=== PATIENT | female | born 1995 | race Caucasian/White ===

== ENCOUNTER → 2023-07-05 09:58 | Outpatient (REF) | payer OTHER, SELFPAY | LOC: PNTC 09:58 | PROVIDERS: ATTENDING PHYSICIAN Obstetrics & Gynecology | DX: O34.219 Maternal care for unspecified type scar from previous cesarean delivery (principal); O24.414 Gestational diabetes mellitus in pregnancy, insulin controlled | CPT/HCPCS: 76811; 76817; 93976 ==

== ENCOUNTER → 2023-08-03 10:33 | Outpatient (REF) | payer OTHER, SELFPAY | LOC: PNTC 10:33 | PROVIDERS: ATTENDING PHYSICIAN Obstetrics & Gynecology | DX: O44.42 Low lying placenta NOS or without hemorrhage, second trimester (principal); O24.011 Pre-existing type 1 diabetes mellitus, in pregnancy, first trimester | CPT/HCPCS: 76816; 76817; 93976 ==

== ENCOUNTER → 2023-09-04 17:00 | Outpatient (REF) | payer OTHER, SELFPAY | LOC: PNTC 17:00 | PROVIDERS: ATTENDING PHYSICIAN Obstetrics & Gynecology | DX: E10.9 Type 1 diabetes mellitus without complications (principal); O34.219 Maternal care for unspecified type scar from previous cesarean delivery | CPT/HCPCS: 76816 ==

== ENCOUNTER → 2023-09-25 16:58 | Outpatient (REF) | payer OTHER, SELFPAY | LOC: PNTC 16:58 | PROVIDERS: ATTENDING PHYSICIAN Obstetrics & Gynecology | DX: E10.9 Type 1 diabetes mellitus without complications (principal) | CPT/HCPCS: 59025 ==

== ENCOUNTER → 2023-09-28 13:31 | Outpatient (REF) | payer OTHER, SELFPAY | LOC: PNTC 13:31 | PROVIDERS: ATTENDING PHYSICIAN Obstetrics & Gynecology | DX: E10.9 Type 1 diabetes mellitus without complications (principal) | CPT/HCPCS: 59025; 76815 ==

== ENCOUNTER → 2023-10-02 09:29 | Outpatient (REF) | payer OTHER, SELFPAY | LOC: PNTC 09:29 | PROVIDERS: ATTENDING PHYSICIAN Obstetrics & Gynecology | DX: E10.9 Type 1 diabetes mellitus without complications (principal) | CPT/HCPCS: 59025 ==

== ENCOUNTER → 2023-10-05 09:00 | Outpatient (REF) | payer OTHER, SELFPAY | LOC: PNTC 09:00 | PROVIDERS: ATTENDING PHYSICIAN Obstetrics & Gynecology | DX: E10.9 Type 1 diabetes mellitus without complications (principal) | CPT/HCPCS: 59025; 76816 ==

== ENCOUNTER → 2023-10-09 08:00 | Outpatient (REF) | payer OTHER, SELFPAY | LOC: PNTC 08:00 | PROVIDERS: ATTENDING PHYSICIAN Obstetrics & Gynecology | DX: E10.9 Type 1 diabetes mellitus without complications (principal) | CPT/HCPCS: 59025 ==

== ENCOUNTER → 2023-10-12 10:45 | Outpatient (REF) | payer OTHER, SELFPAY | LOC: PNTC 10:45 | PROVIDERS: ATTENDING PHYSICIAN Obstetrics & Gynecology | DX: E10.9 Type 1 diabetes mellitus without complications (principal) | CPT/HCPCS: 59025; 76815 ==

== ENCOUNTER 2023-10-14 14:13 | Inpatient (IN) | payer OTHER, SELFPAY ==
[2023-10-14 14:24] VITALS: BP 115/79; BMI 26.2
[2023-10-14] MEDS: PT'S OWN INSULIN PUMP - NovoLOG 2.5 UNIT SC (15:20)
[2023-10-14 15:21] LABS: Glucose - Point of Care 187 mg/dl (70-99)
[2023-10-14 15:27] LABS: % Basophils 0.5 % (0-2); % Eosinophils 0.3 % (0-6); % Immature Granulocytes 0.7 % (0-0.5); % Lymphocytes 22.1 % (20.5-51.1); % Monocytes 5.3 % (1.7-9.3); % Neutrophils 71.1 % (42.2-75.2); Absolute Basophils 0.1 10^3/uL (0-0.2); Absolute Immature Granulocytes 0.1 10^3/uL (0-0.05); Absolute Lymphocytes 2.4 10^3/uL (1.2-3.4); Absolute Monocytes 0.6 10^3/uL (0.1-0.6); Absolute Neutrophils 7.9 10^3/uL (1.4-6.5); Hematocrit 34.8 % (37.0-47.0); Hemoglobin 12.4 g/dL (12.0-16.0); Mean Corp Hgb Conc. 35.6 g/dL (33.0-37.0); Mean Corpuscular Hgb 29.1 pg (27.0-31.0); Mean Corpuscular Volume 81.7 fL (81.0-99.0); Mean Platelet Volume 11.4 fL (7.4-10.4); Nucleated Red Blood Cells % 0 %; Platelet Count 195 10^3/uL (130-400); Red Blood Cell Count 4.26 10^6/uL (4.20-5.40)
[2023-10-14] MEDS: NSS 1000 IV ×2 (15:30→23:00)
[2023-10-14] MEDS: PENICILLIN 110 UNITS IV (15:43)
[2023-10-14] MEDS: PITOCIN 30 UNITS/NSS 500 ML IV (17:44)
[2023-10-14 19:10] LABS: Glucose - Point of Care 136 mg/dl (70-99)
--- NOTE | 2023-10-14 19:27 | CON.NEO ---
Consultation
-
Date/Time Consultation Requested: 10/14/23 @ 1504
Date/Time Consultation Performed: 10/14/23 @6589
Requesting Provider: Dr Denisha Rivers
Performing Provider: Dr Oxnaa Watts
Reason for Consultation: 27 yo , with type 1 diabetes who presented at 34 6/7 with PPROM
Consultation - Neonatology
Maternal Labs
Blood Type: B Positive
Antibody Screen: Negative
RPR: Nonreactive
Rubella: Immune
Hep B S Ag: Negative
Hep C: Negative
HIV: Nonreactive
Group B Strep: Unknown
Chlamydia/GC: Negative
Consult
Points discussed at consult:
- Management at delivery including the possibility of CPAP/intubation/surfactant discussed
- Respiratory: RDS possibility with possibility of worsening for 24-48 hrs, management including CPAP/surfactant/ventilator support may be required
- Nutrition: Hypoglycemia, need for IV fluids, gradual feed advance, Gavage feeding, importance of colostrum feeding, initiation of expression of colostrum within 3-4 hours, availability of donor milk, safety fo donor milk etc. were discussed.
- Procedures: Intubation, CPAP, IV placement, blood tests, umbilical arterial or venous lines, gavage feedings were discussed
- CVS: possibility of PDA not discussed in detail at this time
- CREATIVE SERVICES COORDINATOR: Rare possibility of IVH and need for head US, grading of IVH and terminal make up operator effects of Grade III/IV although extremely rare at >32 weeks were discussed
- Jaundice possibility and need for phototherapy discussed
- Family Centered Care: Discussed FCC with emphasis on parental participation during sign off and during management rounds and is encouraged. Availability of justin eyes camera also discussed
-Mom and Dad were given the opportunity to ask questions throughout and open invitation to call if any questions come as they absorb all the information given so far.
Face to Face Time
Total [id number] Time (in Minutes): 35 mins
Attending Clinical Applications Manager: Ashley Quintana MD
Clinical Applications Manager
[2023-10-14] MEDS: PT'S OWN INSULIN PUMP - NovoLOG 1.19999999999999996 UNIT SC (19:28)
[2023-10-14] MEDS: PENICILLIN 55 UNITS IV ×2 (20:00→23:57)
[2023-10-14 23:06] LABS: Glucose - Point of Care 91 mg/dl (70-99)
[2023-10-14] MEDS: SUBLIMAZE 100 MCG EPIDURAL (23:30)
[2023-10-14] MEDS: FENTANYL/BUPIVACAINE 100 EPIDURAL (23:30)
[2023-10-15 00:33] LABS: Glucose - Point of Care 114 mg/dl (70-99)
[2023-10-15] MEDS: PT'S OWN INSULIN PUMP - NovoLOG 0.440000000000000002 UNIT SC (01:06)
[2023-10-15] MEDS: PT'S OWN INSULIN PUMP - NovoLOG 0.560000000000000053 UNIT SC (01:18)
[2023-10-15 02:14] LABS: Glucose - Point of Care 141 mg/dl (70-99)
[2023-10-15] MEDS: PITOCIN 30 UNITS/NSS 500 ML IV (03:05)
[2023-10-15] MEDS: PENICILLIN IV (03:53)
[2023-10-15] MEDS: METHERGINE INJECTION 0.200000000000000011 MG IM (04:03)
[2023-10-15 07:40] LABS: Glucose - Point of Care 174 mg/dl (70-99)
[2023-10-15] MEDS: PT'S OWN INSULIN PUMP - NovoLOG 6 UNIT SC (07:43)
[2023-10-15] MEDS: MOTRIN 600 MG PO (07:44)
[2023-10-15 13:47] LABS: Glucose - Point of Care 75 mg/dl (70-99)
[2023-10-15] MEDS: PT'S OWN INSULIN PUMP - NovoLOG 6.59999999999999964 UNIT SC (13:48)
[2023-10-15 17:49] LABS: Glucose - Point of Care 186 mg/dl (70-99)
[2023-10-15] MEDS: PT'S OWN INSULIN PUMP - NovoLOG 9.30000000000000071 UNIT SC (17:50)
[2023-10-15 21:36] LABS: Glucose - Point of Care 56 mg/dl (70-99)
[2023-10-15 21:54] LABS: Glucose - Point of Care 72 mg/dl (70-99)
[2023-10-15] MEDS: PT'S OWN INSULIN PUMP - NovoLOG SC (21:56)
[2023-10-16 04:24] LABS: Hematocrit 30.8 % (37.0-47.0); Hemoglobin 11.1 g/dL (12.0-16.0)
[2023-10-16] MEDS: PT'S OWN INSULIN PUMP - NovoLOG 8 UNIT SC (07:30)
[2023-10-16 08:13] LABS: Glucose - Point of Care 111 mg/dl (70-99)
[2023-10-16] MEDS: PT'S OWN INSULIN PUMP - NovoLOG 9 UNIT SC (11:30)
[2023-10-16 12:35] LABS: Glucose - Point of Care 80 mg/dl (70-99)
[2023-10-16] MEDS: PT'S OWN INSULIN PUMP - NovoLOG 6 UNIT SC (16:30)
[2023-10-17 15:43] LABS: Syphilis/T. pallidum Ab Reflex Negative (Negative)
== END 2023-10-16 18:52 | disposition home or self-care (01) | DRG 805 ==
LOC: LDRP 14:13
PROVIDERS: ADMITTING PHYSICIAN Obstetrics & Gynecology
PROC: 0HQ9XZZ Repair Perineum Skin, External Approach (ICD-10-PCS; 2023-10-15)
PROC: 10E0XZZ Delivery of Products of Conception, External Approach (ICD-10-PCS; 2023-10-15)
DX: O42.013 Preterm premature rupture of membranes, onset of labor within 24 hours of rupture, third trimester (principal); O24.02 Pre-existing type 1 diabetes mellitus, in childbirth; Z37.0 Single live birth; Z3A.34 34 weeks gestation of pregnancy; O34.211 Maternal care for low transverse scar from previous cesarean delivery; N85.8 Other specified noninflammatory disorders of uterus; O69.81X0 Labor and delivery complicated by cord around neck, without compression, not applicable or unspecified; O70.0 First degree perineal laceration during delivery; E10.8 Type 1 diabetes mellitus with unspecified complications
CPT/HCPCS: 88307; 82962; 85014; 85018; 85025; 86780; 86850; 86900; 86901; 87070

== ENCOUNTER 2024-11-26 11:39 | Emergency (ER) | payer OTHER, SELFPAY ==
[2024-11-26 11:42] VITALS: BP 117/73
[2024-11-26 12:22] LABS: Urine Character Clear (Clear)
[2024-11-26 12:22] LABS: Hematocrit 39.0 % (37.0-47.0); Hemoglobin 13.0 g/dL (12.0-16.0); Mean Corp Hgb Conc. 33.3 g/dL (33.0-37.0); Mean Corpuscular Volume 86.1 fL (81.0-99.0); Nucleated Red Blood Cells % 0 %; Platelet Count 289 10^3/uL (130-400); Red Cell Dist. Width 12.5 % (11.5-14.5)
[2024-11-26 12:30] LABS: HCG, Serum Qualitative Screen Negative
[2024-11-26 12:36] LABS: ALT (SGPT) 18 U/L (0-35); AST (SGOT) 22 U/L (14-36); Albumin 4.8 g/dl (3.5-5.0); Alkaline Phosphatase 67 U/L (38-126); Blood Urea Nitrogen 13 mg/dl (7-17); Calcium 9.4 mg/dl (8.4-10.2); Carbon Dioxide 26 mmol/L (22-30); Chloride 105 mmol/L (98-107); Glucose 229 mg/dl (70-99); Potassium 4.6 mmol/L (3.5-5.1); Sodium 138 mmol/L (135-145); Total Protein 7.4 g/dl (6.3-8.2); eGFR > 60.00
[2024-11-26 13:36] VITALS: BMI 24.2
[2024-11-26 13:47] VITALS: BP 111/64
[2024-11-26 14:39] VITALS: BP 125/71
--- NOTE | 2024-11-26 15:10 | ED.GENMED ---
History of Present Illness
General
Chief Complaint: Blood Sugar Problem
Time Seen by Provider: 11/26/24 14:35
History of Present Illness
History of Present Illness:
29-year-old female with history of type 1 diabetes with insulin pump presenting to the emergency department for generally feeling unwell. Patient reports prior to arrival she had an episode when she was in the car, felt unusual. She notes that she
has felt this way in the past when her sugar was low. Her Dexcom scan showed that her sugars were normal. She went to convenient store, got a protein bar and still felt unwell. She started to get anxious about it, which prompted her to come to
the hospital. Notes that her sugars yesterday evening were a little bit more elevated than typical. Denies any fever. Denies any chest pain, difficulty breathing, abdominal pain, urinary symptoms. Denies any vomiting. Denies any known sick
contacts. She did recently start taking creatine, which she had this morning. Reports that she is currently feeling better, denies acute medical complaints
Past History
Past History
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
ED Past Surgical History: None
Social History
Tobacco: Non-smoker
Alcohol: None
Drug: None
Personal:
Living: with family
Employment: Employed
Family History
Family History: Negative Hypertension or CAD
Phy Exam
Physical Exam
Physical Exam:
General: Well-appearing, no clinical signs of dehydration, nontoxic and in no acute distress
HEENT: protecting airway
Neck: appears supple
CV: Normal heart rate, regular rhythm, no evidence of cyanosis
Resp: No accessory muscle use, no increased work of breathing, lungs clear to auscultation bilaterally
Abd: Soft and non-distended, no tenderness to palpation
Extremities: No deformities, no swelling, no erythema, pulses and sensation intact
Neuro: alert, no focal neurologic deficit
: deferred
Rectal: deferred
Psych: Normal affect
Skin: Intact
Course
Orders/Labs/Results
Orders:
Orders
11/26/24 11:47
Test Result ONCE
11/26/24 11:51
CBC/With Diff [Complete Blood Count/With Diff] Urgent
Comprehensive Metabolic Panel Urgent
HCG, Serum Qualitative Screen Urgent
11/26/24 11:54
Urinalysis Reflex To Culture Urgent
Date Specimen was Collected: 11/26/24
Time Specimen was Collected: 11:47
11/26/24 14:45
Electrocardiogram (*1) Urgent
Reason for Study: Other
Other Reason for Exam: screening
EKG- Treatment ONCE
Abnormal Lab Results
11/26/24
11:51
Glucose 229 H mg/dl
(70-99)
11/26/24 11:51
11/26/24 11:51
Vital Signs
Initial and Last Documented VS:
Initial Vital Signs
Temp Pulse Resp BP Pulse Ox
98.4 F 74 16 117/73 99
11/26/24 11:42 11/26/24 11:42 11/26/24 11:42 11/26/24 11:42 11/26/24 11:42
Last Documented Vital Signs
Temp Pulse Resp BP Pulse Ox
98.4 F 70 16 125/71 100
11/26/24 11:42 11/26/24 14:39 11/26/24 14:39 11/26/24 14:39 11/26/24 14:39
MDM/Problems Addressed
MDM/Problems Addressed:
29-year-old female with history of type 1 diabetes presenting for episode prior to arrival where she generally felt unwell. Vital signs on arrival are normal.
On exam patient is resting comfortably, no acute distress or discomfort, reports that she is currently feeling better. Unremarkable examination. She is afebrile, nontoxic. No focal neurologic deficits. Patient had laboratory analysis prior to my
assessment, mild hyperglycemia without any evidence of DKA. Patient had urinalysis, no significant signs of dehydration, no infection. negative. EKG obtained, no arrhythmia or acute ischemic process. Patient continues to report that
she is feeling better. Without present concern for serious acute process. Feel stable for discharge with close outpatient primary care follow-up and continued close monitoring of her sugars. Return precautions discussed and patient verbalized
understanding
*Pulse Oximetry
SaO2: 100
Oxygen Mode of Delivery: Room air
Patient hypoxic: no
*EKG
Interpreted by ED Provider?: Yes
EKG Intrepretation Date: 11/26/24
EKG Intrepretation Time: 15:11
Interpretation: normal
Heart Rate: 68
Rate: normal
Rhythm: sinus
[place]: normal axis
Interval: normal interval
QRS Pattern: normal QRS
Ischemia: no ischemia
*Critical Care Note
Total Time (30-74mins, 75-104mins- exclusive of procedures): Not Applicable
ED Attending Note
-
Portions of this chart may have been created with voice recognition software.� Occasional wrong word or��sound alike� substitutions may have occurred due to the inherent limitations of voice recognition software.
Discharge Plan
Departure
Prescriptions:
No Action
Insulin Pump Cartridge
1 dose SC .CONTINUOUS
Vitamins Tablet
1 tab PO DAILY
famotidine [Pepcid AC] 10 mg Tablet
10 mg PO HS
ibuprofen 600 mg Tablet
600 mg PO Q6HPRN PRN (Reason: moderate pain/cramps) Qty: 90 0RF
Referrals:
UNKNOWN - PT DOES,NOT KNOW [Family Provider]
Interventions
Interventions:
*Risk Screen - Suicide Last Done: 11/26/24 11:42
*General Assessment Last Done: 11/26/24 13:38
*Neglect/Abuse Screening Last Done: 11/26/24 11:42
*ED- Fall Risk Assessment Last Done: 11/26/24 13:38
*ED COVID-19 Vaccine History Last Done: 11/26/24 13:38
ED- Neurological Assessment Last Done: 11/26/24 13:40
Discharge Date and Time
Print Language: WELSH
[2024-11-26 15:20] VITALS: BP 105/70
== END 2024-11-26 15:21 | disposition home or self-care (01) ==
LOC: EMR 11:39
PROVIDERS: Emergency Medicine; EMERGENCY PHYSICIAN Student in an Organized Health Care Education/Training Program
DX: E10.65 Type 1 diabetes mellitus with hyperglycemia (principal); Z79.4 Long term (current) use of insulin; Z96.41 Presence of insulin pump (external) (internal)
CPT/HCPCS: 99284; 80053; 81003; 84703; 85025; 93005